=== PATIENT | female | born 1960 | race Caucasian/White ===

== ENCOUNTER 2020-09-25 15:42 | Emergency (ER) | payer OTHER, MEDICAID ==
[~2020-09-25] VITALS: Ht 165.1 cm; Wt 88.6 kg
== END 2020-09-25 17:52 | disposition home or self-care (01) ==
LOC: ER 15:43
DX: J06.9 Acute upper respiratory infection, unspecified (principal); Z20.822 Contact with and (suspected) exposure to COVID-19
CPT/HCPCS: 87635; 99283; C9803